=== PATIENT | female | born 1965 | race Asian ===

== ENCOUNTER 2016-09-13 10:57 | Day surgery (SDC) | payer OTHER ==
[2016-09-13] VITALS (13 sets, daily range): BP systolic 111–137; BP diastolic 56–72; PULSE 70–88; RESP 10–66; Ht 165.1 cm; Wt 59.8 kg
[~2016-09-13] VITALS: Ht 165.1 cm; Wt 59.8 kg
[~2016-09-13 10:57] MED LIST: EPHEDrine SULFATE 50 MG/5 ML SYG ONE
[2016-09-13] MEDS ORDERED: CIPR500S2 PO (12:42)
--- NOTE | 2016-09-13 13:06 | HPN ---
Date/Time of Note Date/Time of Note DATE: 09/13/16 TIME: 13:05 Interval H&P Admission Note Pt. seen H&P reviewed: No system changes JUAN NAVA MD Sep 13, 2016 13:06
[2016-09-13] MEDS ORDERED: MIDAZOLAM 1 MG/ML 2 ML INJ ONE (13:19)
[2016-09-13] MEDS ORDERED: FENTAnyl 50 MCG/ML VIAL ONE (13:19)
[2016-09-13] MEDS ORDERED: LIDOCAINE 2% (SDV) 5 ML INJ ONE (13:19)
[2016-09-13] MEDS ORDERED: PROPOFOL 20 ML ONE (13:19)
[2016-09-13] MEDS ORDERED: DEXAMETHASONE 4 MG/ML 1 ML INJ ONE (13:31)
[2016-09-13] MEDS ORDERED: ONDANSETRON 4 MG INJ ONE (13:31)
[2016-09-13] MEDS ORDERED: METOCLOPRAMIDE 10 MG INJ ONE (13:31)
[2016-09-13] MEDS ORDERED: PROCHLORPERAZINE 10 MG INJ IV PRN (14:00)
[2016-09-13] MEDS ORDERED: DIPHENHYDRAMINE 50 MG INJ IV PRN (14:00)
[2016-09-13] MEDS ORDERED: ONDANSETRON 4 MG INJ IV PRN (14:00)
[2016-09-13] MEDS ORDERED: MEPERIDINE 25 MG INJ IV PRN (14:00)
[2016-09-13] MEDS ORDERED: OXYCODONE/ACETAMINOPHEN (5/325) TAB PO PRN (14:00)
[2016-09-13] MEDS ORDERED: FENTAnyl 50 MCG/ML VIAL IV PRN (14:00)
[2016-09-13] MEDS ORDERED: HYDROmorphONE (0.2 MG/ML) 10ML SYG IV PRN (14:00)
[2016-09-13] MEDS ORDERED: KETOROLAC 30 MG INJ ONE (14:23)
--- NOTE | 2016-09-13 14:30 | PD.PPDC ---
[employer] Discharge Instruction Diagnosis Final Diagnosis: menomtrorrhagia endocervical polyp Condition Patient Condition: Stable Diet Diet: Resume Regular Diet Activity/Restrictions Activity: May Shower Restrictions: No Sexual Activity Nothing in the Vagina No [place] No Tampons, douche Follow-up Follow-up with Physician: 2, Week/Weeks Return to clinic for LETTER OF CREDIT DOCUMENT EXAMINER Instructions: Fever greater than 101 [place] Worsening abdominal pain Excessive Vaginal Bleeding More than 2 pads per hour Unable to tolerate diet JUAN NAVA MD Sep 13, 2016 14:30
--- NOTE | 2016-09-16 14:57 | OPR ---
DATE OF OPERATION: 09/13/2016 PREOPERATIVE DIAGNOSIS: Menometrorrhagia. POSTOPERATIVE DIAGNOSIS: Endocervical polyp versus endometrial polyp. ANESTHESIA: General. ANESTHESIOLOGIST: Refer to the chart. INSPECTOR BOILER: Neal from . SURGEON: Es Cash MD PROCEDURE: Under appropriate induction of general anesthesia, the patient was placed in dorsal lith otomy position. Perineal area and vagina wall were prepped and draped in usual aseptic manner. Miguel ghted speculum introduced, cervix identified. Endocervical curettage was performed after the bimanu al examination. Uterus felt to be slightly increased in size. There is no palpable adnexal patholo gy. Weighted speculum introduced, anterior lip of the cervix grasped with a single tooth tenaculum, and the endocervical curettage was performed with obtaining scanty tissue which was sent to patholo gy. The uterine cavity was sounded, which was 8.5 cm in depth, was dilated up to 7 cm, and the hyst eroscope was introduced, gradually into the endocervical canal and inserted further and enough diste ntion of the uterus obtain. There is polyploid tissue which was originating from either junction of endocervical endometrial area which is in the os, and further insertion of the hysteroscope visuali zed both ostium and fundus which appeared to be atrophied. The hysteroscope was slightly moved out, and the soft resector was inserted through the hysteroscope. This polypoid tissue was shaved in th e usual fashion and retrieved all the tissue including surrounding endometrial tissue in the usual f ashion. Fluid deficit is only approximately 20 mL. The procedure was completed and the instruments removed from the uterus. The tenaculum was removed from the cervix. The patient withstood procedu re well and sent to recovery room in stable condition. Dictated By: ES VALERO/ANN-MARIE Conf#: [id number] DID#: [id number]
== END 2016-09-13 16:29 | disposition home or self-care (01) ==
LOC: SDS 10:57
PROVIDERS: ATTEND Obstetrics & Gynecology
DX: N92.1 Excessive and frequent menstruation with irregular cycle (principal)
CPT/HCPCS: 58558; 84703; J1100; J1885; J2250; J2405; J2765; J3010